=== PATIENT | male | born 1985 | race Caucasian/White ===

== ENCOUNTER 2016-05-05 11:45 | Emergency (ER) | payer OTHER ==
[~2016-05-05] VITALS: Ht 170.2 cm; Wt 109.1 kg
[2016-05-05 11:48] VITALS: BP 146/86; PULSE 95; RESP 14; TEMP 98.2; O2SAT 96
[2016-05-05 11:55] VITALS: BP 154/82; PULSE 89; RESP 20; O2SAT 98
[2016-05-05] MEDS ORDERED: SODIUM CHLORIDE 0.9% FLUSH 5 ML FLUSH IVF PRN (12:30)
[2016-05-05] MEDS ORDERED: ASPIRIN 81 MG CHEW TAB PO ONE (12:30)
[2016-05-05 12:35] VITALS: O2SAT 98
[2016-05-05 12:40] VITALS: BP_SYST 142; BP_SYST 153; BP_DIAS 73; BP_DIAS 79; PULSE 75; RESP 18; O2SAT 96
[2016-05-05 12:53] LABS: AUTOMATED NEUTROPHIL # 6.8 TH/MM3 (1.8-7.7); BASOPHIL # 0.1 TH/MM3 (0-0.2); EOSINOPHIL # 0.1 TH/MM3 (0-0.4); EOSINOPHIL % 1.3 % (0.0-4.0); HEMATOCRIT 47.1 % (39.0-51.0); HEMO FLAGS DIFF FINAL; LYMPH % 29.7 % (9.0-44.0); LYMPHOCYTE # 3.3 TH/MM3 (1.0-4.8); MEAN CELL VOLUME 83.9 FL (80.0-100.0); MEAN CORPUSCULAR HEMOGLOBIN 28.9 PG (27.0-34.0); MEAN CORPUSCULAR HGB CONC 34.5 % (32.0-36.0); MONO % 6.3 % (0.0-8.0); NEUT % 61.7 % (16.0-70.0); PLATELET COUNT 308 TH/MM3 (150-450); RED BLOOD COUNT 5.62 MIL/MM3 (4.50-5.90); RED CELL DISTRIBUTION WIDTH 13.5 % (11.6-17.2); WHITE BLOOD COUNT 11.1 TH/MM3 (4.0-11.0)
[2016-05-05 13:13] LABS: APTT (PATIENT) 26.6 SEC (24.3-30.1); PROTHROMBIN TIME - PATIENT 11.3 SEC (9.8-11.6)
--- NOTE | 2016-05-05 13:16 | RADRPT ---
EXAM DATE/TIME: 05/05/2016 13:10 [place] COMPARISON: No previous studies available for comparison. INDICATIONS : Patient has had discomfortand pressure in his chest since yesterday. MEDICAL HISTORY : None. SURGICAL HISTORY : None. ENCOUNTER: Initial ACUITY: 1 day PAIN SCORE: 0/10 LOCATION: chest FINDINGS: PA and lateral views of the chest demonstrate the lungs to be symmetrically aerated without evidence of mass, infiltrate or effusion. The cardiomediastinal contours are unremarkable. Osseous structure s are intact. CONCLUSION: No acute disease. Shad Wilkerson MD FACR on May 05, 2016 at 13:14 Board Certified Radiologist. This report was verified electronically.
[2016-05-05 13:26] LABS: ALKALINE PHOSPHATASE 76 U/L (45-117); ALT (GPT) 47 U/L (12-78); ANION GAP 11 MEQ/L (5-15); AST (GOT) 24 U/L (15-37); BICARBONATE 24.7 MEQ/L (21.0-32.0); BLOOD UREA NITROGEN 12 MG/DL (7-18); CHLORIDE 103 MEQ/L (98-107); CREATINE KINASE 138 U/L (39-308); GLOMERULAR FILTRATION RATE 87 ML/MIN (>89); SODIUM (NA) 139 MEQ/L (136-145); TOTAL BILIRUBIN ADULT 0.6 MG/DL (0.2-1.0)
[2016-05-05 13:41] LABS: CKMB 0.6 NG/ML (0.5-3.6)
[2016-05-05] MEDS ORDERED: KETOROLAC TROMETHAMINE 30 MG/ML (IVP) VIAL IV PUSH ONE (14:30)
--- NOTE | 2016-05-05 14:30 | PD ---
HPI Chief Complaint: Chest Pain Time Seen by Provider: 12:00 Travel History International Travel<30 days: Yes Contact w/Intl Traveler<30days: Yes Name of Country Traveled to: [facility] Traveled to known affect area: No History of Present Illness HPI Patient is a 30 year old male who comes in complaining of chest pain and lightheadedness. He says it started yesterday and was worse today when he was driving. He says it is a pressure sensation to the left side of his chest. He denies any SOB. He denies nausea or vomiting. He says he is under a lot of stress because his is in the hospital. He denies fever or chills. He denies cough. He did recently travel to the [place]. [facility] Past Medical History Medical History: Denies Significant Hx Diminished Hearing: No Tetanus Vaccination: Unknown Influenza Vaccination: No Past Surgical History Surgical History: No Previous Surgery Social History Alcohol Use: No Tobacco Use: No Substance Use: No Allergies-Medications (Allergen,Severity, Reaction): Coded Allergies: No Known Allergies (Unverified , 05/05/16) Review of Systems Except as stated in HPI: all other systems reviewed are Neg General / Constitutional: No: Fever HENT: Positive: Lightheadedness, No: Headaches Cardiovascular: Positive: Chest Pain or Discomfort Respiratory: No: Cough, Shortness of Breath Gastrointestinal: No: Nausea, Vomiting Musculoskeletal: No: Edema, Pain Skin: No Rash, No Change in Pigmentation Neurologic: No: Weakness, Dizziness Physical Exam Narrative GENERAL: Awake and Alert in no acute distress. SKIN: Warm and dry. HEAD: Atraumatic. Normocephalic. EYES: Pupils equal and round. No scleral icterus. ENT: Mucous membranes pink and moist. NECK: Trachea midline. No JVD. CARDIOVASCULAR: Regular rate and rhythm. No murmur appreciated. RESPIRATORY: No accessory muscle use. Clear to auscultation. Breath sounds equal bilaterally. GASTROINTESTINAL: Abdomen soft, non-tender, nondistended. MUSCULOSKELETAL: No obvious deformities. No clubbing. No cyanosis. No edema. NEUROLOGICAL: Awake and alert. No obvious cranial nerve deficits. Motor grossly within normal limits. Normal speech. PSYCHIATRIC: Appropriate mood and affect; insight and judgment normal. Data Data Last Documented VS Vital Signs Date Time Temp Pulse Resp B/P Pulse Ox O2 Delivery O2 Flow Rate FiO2 05/05/16 14:34 67 20 144/92 99 05/05/16 12:35 Room Air 05/05/16 11:48 98.2 Orders Electrocardiogram (05/05/16 ) Ckmb (Isoenzyme) Profile (05/05/16 12:29) Complete Blood Count With Diff (05/05/16 12:29) Comprehensive Metabolic Panel (05/05/16 12:29) Prothrombin Time / Inr (Pt) (05/05/16 12:29) Act Partial Throm Time (Ptt) (05/05/16 12:29) Troponin I (05/05/16 12:29) Ecg Monitoring (05/05/16 12:29) Bilateral Bp Monitoring (05/05/16 12:29) Iv Access Insert/Monitor (05/05/16 12:29) Oximetry (05/05/16 12:29) Oxygen Administration (05/05/16 12:29) Aspirin Chew (Aspirin Chew) (05/05/16 12:30) Sodium Chloride 0.9% Flush (Ns Flush) (05/05/16 12:30) Chest, Pa & Lat (05/05/16 12:29) CKMB (05/05/16 12:40) CKMB% (05/05/16 12:40) Ketorolac Inj (Toradol Inj) (05/05/16 14:30) D-Dimer (05/05/16 14:30) Labs Laboratory Tests Test 05/05/16 12:40 White Blood Count 11.1 TH/MM3 Red Blood Count 5.62 MIL/MM3 Hemoglobin 16.2 GM/DL Hematocrit 47.1 % Mean Corpuscular Volume 83.9 FL Mean Corpuscular Hemoglobin 28.9 PG Mean Corpuscular Hemoglobin 34.5 % Concent Red Cell Distribution Width 13.5 % Platelet Count 308 TH/MM3 Mean Platelet Volume 10.1 FL Neutrophils (%) (Auto) 61.7 % Lymphocytes (%) (Auto) 29.7 % Monocytes (%) (Auto) 6.3 % Eosinophils (%) (Auto) 1.3 % Basophils (%) (Auto) 1.0 % Neutrophils # (Auto) 6.8 TH/MM3 Lymphocytes # (Auto) 3.3 TH/MM3 Monocytes # (Auto) 0.7 TH/MM3 Eosinophils # (Auto) 0.1 TH/MM3 Basophils # (Auto) 0.1 TH/MM3 CBC Comment DIFF FINAL Differential Comment Prothrombin Time 11.3 SEC Prothromb Time International 1.0 RATIO Ratio Activated Partial 26.6 SEC Thromboplast Time D-Dimer Quantitative (PE/DVT) 0.22 MG/L FEU Sodium Level 139 MEQ/L Potassium Level 4.0 MEQ/L Chloride Level 103 MEQ/L Carbon Dioxide Level 24.7 MEQ/L Anion Gap 11 MEQ/L Blood Urea Nitrogen 12 MG/DL Creatinine 1.01 MG/DL Estimat Glomerular Filtration 87 ML/MIN Rate Random Glucose 95 MG/DL Calcium Level 9.8 MG/DL Total Bilirubin 0.6 MG/DL Aspartate Amino Transf 24 U/L (AST/SGOT) Alanine Aminotransferase 47 U/L (ALT/SGPT) Alkaline Phosphatase 76 U/L Total Creatine Kinase 138 U/L Creatine Kinase MB 0.6 NG/ML Troponin I LESS THAN 0.02 NG/ML Total Protein 8.6 GM/DL Albumin 4.4 GM/DL MDM Medical Decision Making Medical Screen Exam Complete: Yes Emergency Medical Condition: Yes Medical Record Reviewed: Yes Interpretation(s) ECG shows NSR at 75, no ST elevation or depression, normal intervals. Differential Diagnosis Pneumonia vs costochondritis vs pneumothorax vs ACS (unlikely) Narrative Course Patient is a 30-year-old male who comes in complaining of left-sided chest pain and lightheadedness. Exam shows no acute abnormalities. IV established, patient connected to automation qa lead. Labs sent. Troponin and d-dimer are negative. Other labs show no acute abnormalities. Chest x-ray shows no acute abnormalities. Patient given Toradol with relief of his symptoms. I discussed with the patient is very unlikely that he is having a cardiac problem as he has no risk factors and he is 30 years old. Patient offered admission for further management, however he feels he would like to go home at this time. Patient will be discharged to follow-up with his primary doctor. Advised to return to the ED as needed for any worsening symptoms. Diagnosis Primary Impression: Chest pain Qualified Code: R07.9 - Chest pain, unspecified type Patient Instructions: Chest Pain (ED), Costochondritis (ED), General Instructions Additional Instructions: Follow up with your doctor. Take Ibuprofen as needed for pain. Return to the ED as needed for any worsening symptoms. Disposition: 01 DISCHARGE HOME Condition: Stable Gershen,Jennie B MD May 05, 2016 14:30
[2016-05-05 14:34] VITALS: BP 144/92; PULSE 67; RESP 20; O2SAT 99
[2016-05-05 17:15] VITALS: BP 135/80
--- NOTE | 2016-05-06 14:47 | EKG ---
Date Performed: 05/05/2016 Time Performed: 12:24:38 PTAGE: 30 years EKG: Sinus rhythm MODERATE INTRAVENTRICULAR CONDUCTION DELAY BORDERLINE ECG NO PREVIOUS TRACING DOCTOR: Aren Bone Interpretating Date/Time 05/06/2016 14:40:46
== END 2016-05-05 17:25 | disposition home or self-care (01) ==
LOC: NEPE 11:45
DX: R07.9 Chest pain, unspecified (principal); R42 Dizziness and giddiness; R94.31 Abnormal electrocardiogram [ECG] [EKG]
CPT/HCPCS: 71020; 80053; 82550; 82552; 84484; 85025; 85379; 85610; 85730; 93005; 96374; 99285; J1885